=== PATIENT | female | born 1965 | race American Indian/Alaskan Native ===

== ENCOUNTER 2022-04-25 11:18 | Emergency (ER) | payer BC ==
[2022-04-25 12:03] VITALS: BP 154/85
--- NOTE | 2022-04-25 12:32 | Emergency Department Report ---
ED General Adult HPI - General Chief complaint: Animal Bite Stated complaint: FACIAL BEE STING Time Seen by Provider: 04/25/22 12:16 Source: patient Mode of arrival: Ambulatory Limitations: No Limitations - History of Present Illness Initial comments: 56-year-old female with no known allergies presents to the emergency department complaining of a bee sting to left jaw about 90minutes ago. No fever, chills or sweats. She reports no shortness of breath, no odynophagia no dysphagia, no nausea, no vomiting, no tightness of the chest or wheezing, no rash does have some irritation to the sting site Severity scale (0 -10): 4 - Related Data Previous Rx's Medication Instructions Recorded Last Taken Type Mometasone Furoate [Elocon] 15 gm TP BID #1 04/25/22 Unknown Rx hydrOXYzine HCL [Atarax] 25 mg PO Q6HR PRN #20 tablet 04/25/22 Unknown Rx predniSONE [Deltasone] 50 mg PO QDAY #5 tab 04/25/22 Unknown Rx Allergies Allergy/AdvReac Type Severity Reaction Status Date / Time No Known Allergies Allergy Unverified 04/25/22 12:04 ED Review of Systems ROS: Stated complaint: FACIAL BEE STING Other details as noted in HPI Comment: All other systems reviewed and negative ED Past Medical Hx - Past Medical History Hx Hypertension: Yes Hx Diabetes: Yes - Surgical History Additional Surgical History: hysterectomy, tonsillectomy - Medications Home Medications: Home Medications Medication Instructions Recorded Confirmed Last Taken Type Mometasone Furoate [Elocon] 15 gm TP BID #1 04/25/22 Unknown Rx hydrOXYzine HCL [Atarax] 25 mg PO Q6HR PRN #20 tablet 04/25/22 Unknown Rx predniSONE [Deltasone] 50 mg PO QDAY #5 tab 04/25/22 Unknown Rx ED Physical Exam - General Limitations: No Limitations General appearance: alert, in no apparent distress - Head Head exam: Present: atraumatic, normocephalic - Eye Eye exam: Present: normal appearance, PERRL Pupils: Present: normal accommodation - ENT ENT exam: Present: normal exam, mucous membranes moist, TM's normal bilaterally - Neck Neck exam: Present: normal inspection, full ROM, other (no stridor. airway patent) - Respiratory Respiratory exam: Present: normal lung sounds bilaterally. Absent: respiratory distress - Cardiovascular Cardiovascular Exam: Present: regular rate, normal rhythm. Absent: systolic murmur, diastolic murmur, rubs, gallop - GI/Abdominal GI/Abdominal exam: Present: soft, normal bowel sounds - Extremities Exam Extremities exam: Present: normal inspection - Back Exam Back exam: Present: normal inspection, full ROM. Absent: CVA tenderness (R), CVA tenderness (L), paraspinal tenderness, vertebral tenderness - Neurological Exam Neurological exam: Present: alert, oriented X3, CN II-XII intact - Psychiatric Psychiatric exam: Present: normal affect, normal mood. Absent: anxious, flat affect - Skin Skin exam: Present: warm, dry, erythema (mild redness and minimal swelling to left mandible area. ). Absent: rash ED Course Vital Signs 04/25/22 12:00 Temperature 98.5 F Pulse Rate 88 Respiratory 18 Rate Blood Pressure 154/85 [Left] O2 Sat by Pulse 98 Oximetry Critical care attestation.: If time is entered above; I have spent that time in minutes in the direct care of this critically ill patient, excluding procedure time. ED Disposition Clinical Impression: Bee sting Disposition: 01 HOME / SELF CARE / HOMELESS Is pt being admited?: No Does the pt Need Aspirin: No Condition: Stable Prescriptions: hydrOXYzine HCL [Atarax] 25 mg PO Q6HR PRN #20 tablet PRN Reason: Itching predniSONE [Deltasone] 50 mg PO QDAY #5 tab Mometasone Furoate [Elocon] 15 gm TP BID #1 Referrals: [facility] [Provider Group] - 3-5 Days
== END 2022-04-25 12:45 | disposition home or self-care (01) ==
LOC: ED 11:18
DX: T63.441A Toxic effect of venom of bees, accidental (unintentional), initial encounter (principal); I10 Essential (primary) hypertension; E11.9 Type 2 diabetes mellitus without complications; Y92.89 Other specified places as the place of occurrence of the external cause
CPT/HCPCS: 99282